=== PATIENT | female | born 1955 | race Caucasian/White ===

== ENCOUNTER 2016-09-18 13:26 | Day surgery (SDC) | payer OTHER ==
[~2016-09-18] VITALS: Ht 160 cm; Wt 101.2 kg
[~2016-09-18 13:26] MED LIST: 0.9% Sodium Chloride 1,000 ML IV SCH; CHOL100045 PO; CLOB15CR3 TOP; DIFL500T PO; HYDR200T5 PO; HYDR25TA4 PO; LISI1TAB7 PO; LOSA50TA3 PO; METF500T4 PO; METO25TA6 PO; OMEP20CA11 PO; Sodium Chloride LOK Flush 10 mL Syringe IV PRN; fentaNYL-PF 50 mCg/mL 2 mL Inj IVPUSH PRN
[2016-09-18 14:02] VITALS: BP 126/79; PULSE 84; RESP 15; O2SAT 97
--- NOTE | 2016-09-18 15:43 | PCM.ENDCOL ---
Colonoscopy Date of Service: Sep 18, 2016 Physician Lul Paul MD Pre Procedure Diagnosis: Screening Post Procedure Dx & Findings: Polyp hemorrhoids diverticulosis colonic erosion Procedure Colonoscopy PROCEDURE IN DETAIL: Prep adequate Withdrawal time 10 minutes After unremarkable rectal examination the Olympus video colonoscope was inserted patient's anal canal and was advanced to cecum. Landmarks were identified including the ileocecal valve and appendiceal orifice. Scope was withdrawn systematically. Visualized colonic mucosa showed healthy shiny mucosa with normal healthy-appearing vasculature. In the transverse colon, there was a 3 mm polyp which was removed completely using cold snare. In the sigmoid colon there was a 1 mm erosion. This was biopsied. In the sigmoid colon there were a few diverticuli. Anastomosis site noted and it appeared normal without any ulcer or erosion or inflammation. In the rectum retroflexion was done which showed hemorrhoids. Anal canal was inspected carefully on the way out and hemorrhoids noted. Impression Polyp 1 was complete removal Diverticuli Normal anastomosis site Colonic erosion Hemorrhoids Recommendation Repeat colonoscopy 5 years Diverticular diet Presedation Assessment Risks and Benefits Informed consent was obtained from the patient after all risks and benefits including but not limited to drug reaction, infection, pain, bleeding, perforation, as well as alternatives were discussed. Patient monitoring Continuous pulse oximetry, cardiac monitoring, blood pressure monitoring, IV access, and oxygen at 2L per nasal cannula. Periprocedural Fentanyl: Fentanyl 75mcg Incrementally Midazolam: Midazolam 4mg Incrementally Complications There were no periprocedural complications identified. Post Procedure Plan Post Procedure Recommendations 1. Restrict activities today. 2. Resume normal activities in the morning. 3. Resume medications. 4. Patient informed of normal post procedure side effects as bloating, drowsiness, blood streaking in the stool. 5. average risk CRCS. If colon polyps come back as: -Hyperplastic- can repeat colonoscopy in 10 years -Tubular adenoma- repeat colonoscopy in 5 years -Tubulovillous/villous adenoma- repeat colonoscopy in 3 years -If any dysplasia- return to clinic as soon as possible 6. Please don't hesitate to call me with any questions. Lul Paul MD Sep 18, 2016 15:43
[2016-09-18 15:44] VITALS: BP 109/69; PULSE 87; O2SAT 95
[2016-09-18 16:08] VITALS: BP 103/66; PULSE 75; RESP 16; O2SAT 96
[2016-09-18 16:14] VITALS: BP 118/69; PULSE 84; RESP 16; O2SAT 96
--- NOTE | 2016-09-21 09:34 | PATH ---
SURGICAL PATHOLOGY Attending Physician:Lul Paul M.D. CASE STATUS: Signed Out PATIENT NAME: SANDIP KHAN PID: [id number] : 1955 DATE COLLECTED:09/18/2016 00:00 SPECIMEN: 1: Colon, Polyp 2: Colon, Polyp CLINICAL HISTORY: SCREENING COLON POLYP, SIGMOID EROSION 1. TRANSVERSE COLON POLYP 2. 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 2.SIGMOID COLON EROSION, BIOPSIES: ACTIVE COLITIS; PLEASE SEE COMMENT. ICD10 K63.5 NOTE: Part 2. Histologic sections demonstrate a superficial portion of colorectal mucosa with increased neutrophils within the lamina propria, cryptitis, and scattered crypt abscesses. Crypt architecture is predominately intact with mild distortion. There is no evidence of granulomas, dysplasia or malignancy. The differential diagnosis includes an acute self-limited bacterial infection, NSAID use, and idiopathic inflammatory bowel disease, in the appropriate clinical setting. GROSS DESCRIPTION: Received two formalin-filled containers, both labeled with the patient's name. A. In a container labeled "transverse colon polyp", specimen consists of a 0.2 x 0.2 x 0.2 cm portion of tissue which is entirely submitted in cassette 1A. 2. In a container labeled "sigmoid erosion" consists of a 0.2 x 0.2 x 0.2 cm portion of tissue which is entirely submitted in cassette 2A. ([facility] [place]:[id number]) MICRO DESCRIPTION: See diagnosis. ICD-9 CODES: CPT CODES: 1: 17586 2: 72053 Electronically Signed Out Lisandra Jonas MD [facility] Pathology [facility] [address], [place] [address] Technical component performed at [facility], [address] [place] [address] [address], [place], [address]
== END 2016-09-18 23:59 | disposition home or self-care (01) ==
LOC: END 13:26
PROVIDERS: ATTEND Internal Medicine
DX: Z12.11 Encounter for screening for malignant neoplasm of colon (principal); D12.3 Benign neoplasm of transverse colon; K52.89 Other specified noninfective gastroenteritis and colitis; K64.9 Unspecified hemorrhoids; K57.30 Diverticulosis of large intestine without perforation or abscess without bleeding; I10 Essential (primary) hypertension; E78.5 Hyperlipidemia, unspecified; E11.9 Type 2 diabetes mellitus without complications; M19.90 Unspecified osteoarthritis, unspecified site; E66.01 Morbid (severe) obesity due to excess calories; Z79.84 Long term (current) use of oral hypoglycemic drugs; Z68.39 Body mass index [BMI] 39.0-39.9, adult
CPT/HCPCS: 45380; 45385; 99153; G0500; J2250; J3010; J7030